=== PATIENT | female | born 1985 | race Caucasian/White ===

== ENCOUNTER 2017-03-14 16:24 | Inpatient (IN) | payer OTHER ==
[~2017-03-14] VITALS: Ht 157.5 cm; Wt 101.6 kg
== END 2017-03-18 11:55 | DRG 743 ==
LOC: OB/GYN 03-15 05:45 → O/R 03-15 05:45 → OB/GYN 03-15 09:30
PROVIDERS: Obstetrics & Gynecology
PROC: 0UQ00ZZ Repair Right Ovary, Open Approach (ICD-10-PCS; 2017-03-15)
PROC: 0UQ00ZZ Repair Right Ovary, Open Approach (ICD-10-PCS; 2017-03-15)
PROC: 0UB00ZZ Excision of Right Ovary, Open Approach (ICD-10-PCS; 2017-03-15)
PROC: 3E0F7GC Introduction of Other Therapeutic Substance into Respiratory Tract, Via Natural or Artificial Opening (ICD-10-PCS; 2017-03-15)
PROC: 0UT90ZZ Resection of Uterus, Open Approach (ICD-10-PCS; principal; 2017-03-15 09:30)
DX: N84.0 Polyp of corpus uteri (principal); N92.1 Excessive and frequent menstruation with irregular cycle; N83.291 Other ovarian cyst, right side; G71.11 Myotonic muscular dystrophy; G47.39 Other sleep apnea; N72 Inflammatory disease of cervix uteri; N83.11 Corpus luteum cyst of right ovary

== ENCOUNTER 2018-04-18 11:58 | Emergency (ER) | payer OTHER ==
[~2018-04-18] VITALS: Ht 152.4 cm; Wt 90.7 kg
== END 2018-04-18 15:02 | disposition home or self-care (01) ==
LOC: ER 11:58
DX: B34.9 Viral infection, unspecified (principal)

== ENCOUNTER 2018-05-01 06:44 | Day surgery (SDC) | payer OTHER | END 2018-05-01 18:20 | disposition home or self-care (01) | LOC: CIR.AMB 06:44 | DX: L92.3 Foreign body granuloma of the skin and subcutaneous tissue (principal) ==